=== PATIENT | male | born 1990 | race Caucasian/White ===

== ENCOUNTER 2021-10-30 18:59 | Emergency (ER) | payer BC ==
[2021-10-30] MEDS ORDERED: Ketorolac 60 MG/2 ML SDV IM ONE (19:22)
== END 2021-10-30 19:51 | disposition home or self-care (01) ==
LOC: JD.ED 18:59
DX: K02.9 Dental caries, unspecified (principal)
CPT/HCPCS: 96372; 99282; J1885; 99283

== ENCOUNTER 2021-10-31 08:08 | Emergency (ER) | payer BC ==
[2021-10-31] MEDS ORDERED: Ketorolac 60 MG/2 ML SDV IM ONE (08:38)
== END 2021-10-31 08:57 | disposition home or self-care (01) ==
LOC: JD.ED 08:08
DX: K08.89 Other specified disorders of teeth and supporting structures (principal)
CPT/HCPCS: 96372; 99282; J1885; 99284